=== PATIENT | male | born 1960 | race African-American/Black ===

== ENCOUNTER 2016-11-13 10:13 | Emergency (ER) | payer OTHER, SELFPAY ==
[2016-11-13] MEDS ORDERED: Ketorolac Tromethamine 60 MG/2 ML VIAL ONE (11:17)
[2016-11-13] MEDS ORDERED: traMADol HCl 50 MG TAB ONE ×2 (11:17→12:16)
== END 2016-11-13 11:24 | disposition home or self-care (01) ==
LOC: NAV ERS 10:13
DX: G89.29 Other chronic pain (principal); M54.6 Pain in thoracic spine; I10 Essential (primary) hypertension; F17.200 Nicotine dependence, unspecified, uncomplicated
CPT/HCPCS: 96372; J1885

== ENCOUNTER 2017-04-15 22:53 | Emergency (ER) | payer OTHER, SELFPAY ==
[2017-04-15] MEDS ORDERED: Ketorolac Tromethamine 60 MG/2 ML VIAL ONE (23:11)
== END 2017-04-15 23:35 | disposition home or self-care (01) ==
LOC: NAV ERS 22:53
DX: M54.5 Low back pain (principal); M54.2 Cervicalgia; I10 Essential (primary) hypertension; E78.5 Hyperlipidemia, unspecified; F17.210 Nicotine dependence, cigarettes, uncomplicated
CPT/HCPCS: 96372; J1885

== ENCOUNTER 2017-04-23 23:26 | Emergency (ER) | payer SELFPAY ==
[2017-04-24] MEDS ORDERED: Magnesium Citrate 300 ML BOT ONE (00:06)
[2017-04-24] MEDS ORDERED: cloNIDine 0.1 MG TAB ONE (00:06)
== END 2017-04-24 00:25 | disposition home or self-care (01) ==
LOC: NAV ERS 23:26
DX: S01.511A Laceration without foreign body of lip, initial encounter (principal); F10.129 Alcohol abuse with intoxication, unspecified; I10 Essential (primary) hypertension; E78.5 Hyperlipidemia, unspecified; F17.210 Nicotine dependence, cigarettes, uncomplicated; W17.89XA Other fall from one level to another, initial encounter
CPT/HCPCS: 12011

== ENCOUNTER 2018-07-30 12:25 | Outpatient (CLI) | payer OTHER ==
--- NOTE | 2018-07-30 15:06 | RAD ---
RIGHT FOOT 2 VIEWS: HISTORY: Pain Disability FINDINGS: Prominent arthrosis changes noted involving the mid foot, particularly medially and centrally with so me prominent hypertrophic osteophytosis. These changes could conceivably be posttraumatic. No acute fracture or dislocation. IMPRESSION: Severe somewhat focal arthrosis involving the mid foot centrally and medially without acute fracture or dislocation. POS: [facility]
--- NOTE | 2018-07-30 15:14 | RAD ---
THORACIC SPINE 3 VIEWS: Date: 07/30/18 HISTORY: Disability evaluation. Back pain. FINDINGS: Thoracic vertebra maintain height and alignment in the lateral view. There are degenerative changes p resent with anterior and lateral osteophytes. Bridging osteophytes seen laterally on the right are pr ominent in the lower thoracic spine from T9-T12. No evidence of lytic or blastic process. No compress ion deformity. IMPRESSION: Moderate degenerative changes. Large bridging osteophytes are seen anteriorly and laterally on the ri ght in the lower thoracic spine. POS: [facility]
== END 2018-07-30 12:26 | disposition home or self-care (01) ==
LOC: NAV RAD 12:25
PROVIDERS: ATTEND Family Medicine
DX: Z02.71 Encounter for disability determination (principal); M79.671 Pain in right foot; M48.04 Spinal stenosis, thoracic region; M47.814 Spondylosis without myelopathy or radiculopathy, thoracic region; M19.071 Primary osteoarthritis, right ankle and foot
CPT/HCPCS: 72072

== ENCOUNTER 2018-11-09 12:20 | Emergency (ER) | payer MEDICAID, SELFPAY ==
[2018-11-09] MEDS ORDERED: diphenhydrAMINE 50 MG/ML VIAL ONE (12:35)
[2018-11-09] MEDS ORDERED: Sodium Chloride 0.9% 1,000 ML ONE ×2 (12:35→13:46)
[2018-11-09] MEDS ORDERED: methylPREDNISolone Sod Succ/PF 125 MG/2 ML VIAL ONE (12:35)
[2018-11-09] MEDS ORDERED: Famotidine/PF 20 mg/2ml Vial ONE ×2 (12:41→13:04)
[2018-11-09 13:00] LABS: Bilirubin Moderate (Negative); Blood, Urine Trace (Negative); Clarity Clear (Clear); Glucose, Urine (Dipstick) Negative (Negative); Leukocyte Trace (Negative); Nitrite Negative (Negative); Protein, Urine (Dipstick) 100 mg/dL (Neg-Trace)
[2018-11-09 13:10] LABS: ALT (SGPT) 69 U/L (8-55); AST (SGOT) 116 U/L (5-34); Albumin 4.1 g/dL (3.5-5.0); Alcohol Less than 10 mg/dL (Less than 10); Alkaline Phosphatase 74 U/L (40-150); Anion Gap 19 mmol/L (10-20); BUN (Urea Nitrogen) 9 mg/dL (8.4-25.7); Bilirubin, Total 2.5 mg/dL (0.2-1.2); Calc. Creatinine Clearance 0 mL/min (70-130); Calcium 9.5 mg/dL (7.8-10.44); Carbon Dioxide 24 mmol/L (22-29); Chloride 99 mmol/L (98-107); Estimated GFR-MDRD Greater than 90; Globulin 3.4 g/dL (2.4-3.5); Glucose 91 mg/dL (70-105); Magnesium 1.9 mg/dL (1.6-2.6); Protein, Total 7.5 g/dL (6.0-8.3); Sodium 139 mmol/L (136-145)
[2018-11-09 13:11] LABS: Amphetamine Not Detected (NotDetected); Barbiturates Screen Not Detected (NotDetected); Benzodiazepine Screen Not Detected (NotDetected); Cocaine Metabolite Screen Not Detected (NotDetected); Medtox Control Line Valid? VALID (VALID); Methadone Not Detected (NotDetected); Methamphetamine Not Detected (NotDetected); Opiate Screen Not Detected (NotDetected); Oxycodone Screen Not Detected (NotDetected); Phencyclidine (PCP) Not Detected (NotDetected); THC/Cannabinoid Screen Detected (NotDetected); Tricyclic Screen Not Detected (NotDetected)
[2018-11-09 13:12] LABS: Mean Corpuscular HGB CONC 33.3 g/dL (32.0-36.0); Mean Corpuscular Hemoglobin 27.2 pg (27.0-31.0); Mean Corpuscular Volume 81.7 fL (78.0-98.0); Mean Platelet Volume 6.9 fL (7.4-10.4); Platelet Count 161 thou/uL (130-400); RBC Distribution Width 12.4 % (11.5-14.5); Red Blood Cell (RBC) Count 6.25 mill/uL (4.70-6.10); White Blood Cell (WBC) Count 4.4 thou/uL (4.8-10.8)
[2018-11-09 13:12] LABS: Bacteria/HPF None Seen HPF (None Seen); RBC/HPF None Seen HPF (0-3); Squamous Epithelial None Seen HPF (0-3); WBC/HPF 0-3 HPF (0-3)
[2018-11-09 14:04] LABS: Eosinophils 1 % (0-10); Lymphocytes 14 % (21-51); MDiff Complete? YES; Monocytes 9 % (0-10); Neutrophil 76 % (42-75); RBC Morphology Normal
[2018-11-09] MEDS ORDERED: Potassium Chloride 20 MEQ TAB ONE (14:12)
[2018-11-09] MEDS ORDERED: Ondansetron ODT 4 MG TAB ONE (14:12)
== END 2018-11-09 14:36 | disposition left against medical advice (07) ==
LOC: NAV ERS 12:20
DX: T78.3XXA Angioneurotic edema, initial encounter (principal); E86.0 Dehydration; E88.89 Other specified metabolic disorders; I10 Essential (primary) hypertension; E87.6 Hypokalemia; R94.5 Abnormal results of liver function studies; E78.5 Hyperlipidemia, unspecified; F17.210 Nicotine dependence, cigarettes, uncomplicated; Z79.899 Other long term (current) drug therapy
CPT/HCPCS: 36416; 80053; 80306; 80307; 81003; 81015; 82010; 83735; 85025; 93005; 94760; 96361; 96374; 96375; J1200; J2930; J7050; Q0162; S0028

== ENCOUNTER 2019-04-27 11:05 | Emergency (ER) | payer MEDICAID, OTHER ==
[2019-04-27] MEDS ORDERED: Acetaminophen 500 MG TAB ONE (11:38)
[2019-04-27] MEDS ORDERED: Lidocaine 1% (PF) 30 ML VIAL ONE (11:39)
[2019-04-27] MEDS ORDERED: Cephalexin 250 MG CAP ONE (12:08)
== END 2019-04-27 12:24 ==
LOC: NAV ERS 11:05
DX: L02.415 Cutaneous abscess of right lower limb (principal); E78.5 Hyperlipidemia, unspecified; I10 Essential (primary) hypertension; F17.210 Nicotine dependence, cigarettes, uncomplicated; Z79.899 Other long term (current) drug therapy
CPT/HCPCS: 10060; J2001

== ENCOUNTER 2019-04-29 11:57 | Emergency (ER) | payer MEDICAID, OTHER ==
[2019-04-29] MEDS ORDERED: HYDROcodone/Acetaminophen 5/325 mg Tablet ONE (12:31)
== END 2019-04-29 13:03 | disposition home or self-care (01) ==
LOC: NAV ERS 11:57
DX: Z48.817 Encounter for surgical aftercare following surgery on the skin and subcutaneous tissue (principal); Z48.01 Encounter for change or removal of surgical wound dressing; I10 Essential (primary) hypertension; E78.5 Hyperlipidemia, unspecified; F17.210 Nicotine dependence, cigarettes, uncomplicated; Z79.899 Other long term (current) drug therapy
CPT/HCPCS: 99283

== ENCOUNTER 2022-04-06 12:49 | Emergency (ER) | payer OTHER | END 2022-04-06 13:25 | disposition home or self-care (01) | LOC: NAV ERS 12:49 | DX: S01.112D Laceration without foreign body of left eyelid and periocular area, subsequent encounter (principal); I10 Essential (primary) hypertension; E78.00 Pure hypercholesterolemia, unspecified; F17.210 Nicotine dependence, cigarettes, uncomplicated; Z79.899 Other long term (current) drug therapy ==